=== PATIENT | male | born 1990 ===

== ENCOUNTER 2022-05-26 12:40 | Outpatient (CLI) | payer MEDICAID, SELFPAY | END 2022-05-26 12:41 | disposition home or self-care (01) | PROVIDERS: Visit Provider Family Medicine | DX: R41.82 Altered mental status, unspecified (principal) | CPT/HCPCS: A0425; A0427 ==

== ENCOUNTER 2022-05-26 14:16 | Emergency (ER) | payer MEDICAID, SELFPAY ==
[2022-05-26] VITALS (7 sets, daily range): BP systolic 112–132; BP diastolic 73–99; PULSE 54–89; RESP 12–16; TEMP 36.2; O2SAT 96–99; BMI 21.8
[2022-05-26 15:02] LABS: Lactate* 1.4 mmol/L (0.5-1.9)
[2022-05-26 15:07] LABS: Hematocrit 43.9 % (37.0-53.0); Hemoglobin* 14.5 gm/dL (13.5-17.5); Immature Granulocytes Pct Auto 0.4 %; Lymphocytes Percent Auto 4.1 % (20-44); Mean Corpuscular HGB Conc 33 gm/dL (32-36); Mean Corpuscular Hemoglobin 29 pg (26-34); Mean Corpuscular Volume 89 fL (80-100); Monocytes Percent Auto 6.2 % (0.0-11.0); Neutrophils Percent Auto 89.3 % (42.0-72.0); Platelet Count* 231 K/uL (140-440); RDW Coefficient of Variation % 13.3 % (11.5-15.5); Red Blood Count 4.94 m/uL (4.30-5.90)
[2022-05-26 15:17] LABS: Slide Review Reflex Yes; White Blood Count* 30.33 K/uL (4.50-11.00)
[2022-05-26 15:19] LABS: Barbiturate Screen Urine Negative (Negative); Benzodiazepines Screen Urine Negative (Negative); Cannabinoid Screen Urine Negative (Negative); Cocaine Screen Urine Negative (Negative); Methadone Screen Urine Negative (Negative); Opiate Screen Urine Negative (Negative); Oxycodone Screen Urine Negative (Negative); Phencyclidine Screen Urine Negative (Negative); Tricyclic Antidepressant Urine Negative (Negative)
[2022-05-26 15:23] LABS: Amphetamine Screen Urine POSITIVE (Negative); Methamphetamines Screen Urine POSITIVE (Negative)
--- NOTE | 2022-05-26 15:50 | ED.OVERDOSE ---
HPI - Overdose General Date Seen: 05/26/22 Chief Complaint: Overdose Stated Complaint: OD Time Seen by Provider: 05/26/22 14:21 Source: patient Mode of arrival: EMS Limitations: no limitations History of Present Illness HPI Narrative: Patient is a 32-year-old gentleman who presents here for overdose, Intent: unknown Related Data Home Medications Medication Instructions Recorded Confirmed No Known Home Medications 05/26/22 05/26/22 Allergies Allergy/AdvReac Type Severity Reaction Status Date / Time No Known Drug Allergies Allergy Verified 05/26/22 14:24 PFSH PFSH Social History Smoking Status: Current every day smoker How often do you have a drink containing alcohol: monthly or less AUDIT-C Alcohol total score: 1 Non-prescribed substance use: marijuana (any form) and declined to answer Exam Narrative: Exam Narrative: Patient is seen in room 8 in no apparent distress he is answer my questions appropriately, normal vital signs, when I get his worker out of the room, he admits to me that he likely overdosed on fentanyl, pupils are equal or round and reactive to light there midposition, tracks normally no nystagmus TMs are normal, cranial nerves 3-12 are normal oropharynx is normal neck is supple chest is clear with normal heart sounds S1-S2 are normal, no redness is noted over his chest which is atypical for history of the possible CPR. Abdomen is soft there is no guarding no pedal splenomegaly or organomegaly extremities are all normal moves all extremities independently well he has symmetrical both upper and lower extremities and bilaterally symmetrical with normal power. Skin reveals no rashes, Const: Vital Signs, click to edit/add: Vital Signs - 24 hr 05/26/22 14:19 05/26/22 15:30 05/26/22 15:00 Temperature 97.2 F L Pulse Rate [Pulse Oximeter] 71 82 89 Respiratory Rate 12 16 16 Blood Pressure [Le ft Upper Arm] 129/79 132/99 H 129/77 Pulse Oximetry 98 99 98 Oxygen Delivery Me thod Room Air Room Air Room Air Documenting provider has reviewed patient's vital signs: yes Course Course Hospital Course: Patient remains stable, he had no complaints, I went back in and checked on him multiple times, EKG x2 shows no acute change, and troponin x2 shows no delta. His white count was elevated at 30 up suspect this is from de margination from the event, I will sign him over to my partner Dr. Santos to pending repeat white count. If this is normal, then I think we can let him go otherwise I would recommend watching him overnight he seems agreeable. Vital Signs Vital signs: Initial Vital Signs Temperature 97.2 F L 05/26/22 14:19 Temperature Source Temporal Artery Scan 05/26/22 14:19 Pulse Rate 71 05/26/22 14:19 Pulse Rhythm 05/26/22 14:19 Respiratory Rate 12 05/26/22 14:19 Blood Pressure 129/79 05/26/22 14:19 Blood Pressure Mean 95 05/26/22 14:19 Blood Pressure Position Sitting 05/26/22 14:19 Pulse Oximetry 98 05/26/22 14:19 Oxygen Delivery Method 05/26/22 14:19 Vital Signs Temperature 97.2 F L 05/26/22 14:19 Pulse Rate 71 05/26/22 14:19 Respiratory Rate 12 05/26/22 14:19 Blood Pressure 129/79 05/26/22 14:19 Pulse Oximetry 98 05/26/22 14:19 Oxygen Delivery Method 05/26/22 14:19 Temperature 97.2 F L 05/26/22 14:19 Pulse Rate 82 05/26/22 15:30 Respiratory Rate 16 05/26/22 15:30 Blood Pressure 132/99 H 05/26/22 15:30 Pulse Oximetry 99 05/26/22 15:30 Oxygen Delivery Method 05/26/22 15:30 MDM - Overdose Differential Diagnosis Differential diagnosis: Likely cocaine intoxication, suicide attempt by multiple drug overdose, poisoning by opiate or related narcotic, drug overdose, acetaminophen overdose and accidental drug ingestion Medical Records Attestation: I reviewed the patient's medical records. Lab Data Attestation: I reviewed the patient's lab results. Labs: Lab Results 05/26/22 05/26/22 05/26/22 Range/Units 14:50 14:50 14:50 WBC 30.33 H* (4.50-11.00) K/uL RBC 4.94 (4.30-5.90) m/uL Hgb 14.5 (13.5-17.5) gm/dL Hct 43.9 (37.0-53.0) % MCV 89 (80-100) fL MCH 29 (26-34) pg MCHC 33 (32-36) gm/dL RDW Coeff of Landen 13.3 (11.5-15.5) % Plt Count 231 (140-440) K/uL Neut % (Auto) 89.3 H (42.0-72.0) % Lymph % (Auto) 4.1 L (20-44) % Jenkins % (Auto) 6.2 (0.0-11.0) % Eos % (Auto) 0.0 (0.0-7.0) % Baso % (Auto) 0.0 (0.0-3.0) % Neut # (Auto) 27.10 H (1.7-7.0) K/uL Lymph # (Auto) 1.20 (0.90-2.90) K/uL Jenkins # (Auto) 1.90 H (0.00-0.90) K/UL Eos # (Auto) 0.00 (0.00-0.50) K/uL Baso # (Auto) 0.00 (0.00-0.30) K/uL Abs Immat Gran (auto) 0.10 (0.00-0.30) K/uL Imm/Tot Granulo (auto) 0.4 % Diff Slide Review Acceptable Review (Acceptable) INR 1.10 (0.91-1.10) Sodium 141 (135-149) mmol/L Potassium 3.9 (3.6-5.1) mmol/L Chloride 107 (96-114) mmol/L Carbon Dioxide 26 (20-32) mmol/L BUN 16 (5-24) mg/dL Creatinine 1.1 (0.5-1.5) mg/dL Estimated Creat Clear 106.13 Estimated GFR 92 ml/min Glucose 106 (60-115) mg/dL Lactate (0.5-1.9) mmol/L Calcium 9.1 (8.4-10.6) mg/dL Total Bilirubin 0.6 (0.1-1.5) mg/dL AST 27 (12-35) U/L ALT 16 (4-50) U/L Alkaline Phosphatase 47 (40-150) U/L Total Protein 7.6 (6.0-8.3) g/dL Albumin 4.6 (3.3-5.0) g/dL Salicylates < 1.0 L (1.0-10) mg/dL Urine Opiates Screen (Negative) Ur Oxycodone Screen (Negative) Urine Methadone Screen (Negative) Ur Propoxyphene Screen (Negative) Acetaminophen < 10.0 L (10.0-30.0) ug/mL Ur Barbiturates Screen (Negative) U Tricyclic Antidepress (Negative) Ur Phencyclidine Scrn (Negative) Ur Amphetamines Screen (Negative) U Methamphetamines Scrn (Negative) U Benzodiazepines Scrn (Negative) Urine Cocaine Screen (Negative) U Marijuana (THC) Screen (Negative) Ur Drug Screen Comment Ethyl Alcohol (0.01-0.03) % POC Troponin I (0.01-0.04) ng/ml 05/26/22 05/26/22 05/26/22 Range/Units 14:50 14:50 14:50 WBC (4.50-11.00) K/uL RBC (4.30-5.90) m/uL Hgb (13.5-17.5) gm/dL Hct (37.0-53.0) % MCV (80-100) fL MCH (26-34) pg MCHC (32-36) gm/dL RDW Coeff of Landen (11.5-15.5) % Plt Count (140-440) K/uL Neut % (Auto) (42.0-72.0) % Lymph % (Auto) (20-44) % Jenkins % (Auto) (0.0-11.0) % Eos % (Auto) (0.0-7.0) % Baso % (Auto) (0.0-3.0) % Neut # (Auto) (1.7-7.0) K/uL Lymph # (Auto) (0.90-2.90) K/uL Jenkins # (Auto) (0.00-0.90) K/UL Eos # (Auto) (0.00-0.50) K/uL Baso # (Auto) (0.00-0.30) K/uL Abs Immat Gran (auto) (0.00-0.30) K/uL Imm/Tot Granulo (auto) % Diff Slide Review (Acceptable) INR (0.91-1.10) Sodium (135-149) mmol/L Potassium (3.6-5.1) mmol/L Chloride (96-114) mmol/L Carbon Dioxide (20-32) mmol/L BUN (5-24) mg/dL Creatinine (0.5-1.5) mg/dL Estimated Creat Clear Estimated GFR ml/min Glucose (60-115) mg/dL Lactate 1.4 (0.5-1.9) mmol/L Calcium (8.4-10.6) mg/dL Total Bilirubin (0.1-1.5) mg/dL AST (12-35) U/L ALT (4-50) U/L Alkaline Phosphatase (40-150) U/L Total Protein (6.0-8.3) g/dL Albumin (3.3-5.0) g/dL Salicylates (1.0-10) mg/dL Urine Opiates Screen (Negative) Ur Oxycodone Screen (Negative) Urine Methadone Screen (Negative) Ur Propoxyphene Screen (Negative) Acetaminophen (10.0-30.0) ug/mL Ur Barbiturates Screen (Negative) U Tricyclic Antidepress (Negative) Ur Phencyclidine Scrn (Negative) Ur Amphetamines Screen (Negative) U Methamphetamines Scrn (Negative) U Benzodiazepines Scrn (Negative) Urine Cocaine Screen (Negative) U Marijuana (THC) Screen (Negative) Ur Drug Screen Comment Ethyl Alcohol < 0.01 L (0.01-0.03) % POC Troponin I 0.00 L (0.01-0.04) ng/ml 05/26/22 05/26/22 Range/Units 15:03 16:24 WBC (4.50-11.00) K/uL RBC (4.30-5.90) m/uL Hgb (13.5-17.5) gm/dL Hct (37.0-53.0) % MCV (80-100) fL MCH (26-34) pg MCHC (32-36) gm/dL RDW Coeff of Landen (11.5-15.5) % Plt Count (140-440) K/uL Neut % (Auto) (42.0-72.0) % Lymph % (Auto) (20-44) % Jenkins % (Auto) (0.0-11.0) % Eos % (Auto) (0.0-7.0) % Baso % (Auto) (0.0-3.0) % Neut # (Auto) (1.7-7.0) K/uL Lymph # (Auto) (0.90-2.90) K/uL Jenkins # (Auto) (0.00-0.90) K/UL Eos # (Auto) (0.00-0.50) K/uL Baso # (Auto) (0.00-0.30) K/uL Abs Immat Gran (auto) (0.00-0.30) K/uL Imm/Tot Granulo (auto) % Diff Slide Review (Acceptable) INR (0.91-1.10) Sodium (135-149) mmol/L Potassium (3.6-5.1) mmol/L Chloride (96-114) mmol/L Carbon Dioxide (20-32) mmol/L BUN (5-24) mg/dL Creatinine (0.5-1.5) mg/dL Estimated Creat Clear Estimated GFR ml/min Glucose (60-115) mg/dL Lactate (0.5-1.9) mmol/L Calcium (8.4-10.6) mg/dL Total Bilirubin (0.1-1.5) mg/dL AST (12-35) U/L ALT (4-50) U/L Alkaline Phosphatase (40-150) U/L Total Protein (6.0-8.3) g/dL Albumin (3.3-5.0) g/dL Salicylates (1.0-10) mg/dL Urine Opiates Screen Negative (Negative) Ur Oxycodone Screen Negative (Negative) Urine Methadone Screen Negative (Negative) Ur Propoxyphene Screen Negative (Negative) Acetaminophen (10.0-30.0) ug/mL Ur Barbiturates Screen Negative (Negative) U Tricyclic Antidepress Negative (Negative) Ur Phencyclidine Scrn Negative (Negative) Ur Amphetamines Screen POSITIVE A* (Negative) U Methamphetamines Scrn POSITIVE A* (Negative) U Benzodiazepines Scrn Negative (Negative) Urine Cocaine Screen Negative (Negative) U Marijuana (THC) Screen Negative (Negative) Ur Drug Screen Comment See Note Ethyl Alcohol (0.01-0.03) % POC Troponin I 0.01 (0.01-0.04) ng/ml Imaging Data Chest x-ray: Attestation: I have reviewed the pertinent imaging results. My impression: Chest x-ray appears normal, some rotation. ECG Data Attestation: I personally reviewed and interpreted this ECG as follows: ECG interpretation date: 05/26/22 Interpretation: EKG x2 shows normal sinus rhythm, no acute ST wave changes. Discharge Plan Discharge Clinical Impression: Drug overdose Patient Disposition: Home, Self-Care Condition: Stable Instructions: Adult Overdose (ED) Additional Instructions: Home, rest, consider treatment for your issue, recommend you fill the prescription for Narcan, return if signs and symptoms of worsening, social work consult offered Prescriptions: No Action No Known Home Medications Follow Up/Referrals: Provider,Not a Local [Primary Care Provider] - Stand Alone Forms: [email or web address] Info Instructions
[2022-05-26 16:05] LABS: Prothrombin Time 14.9 Seconds
[2022-05-26 16:16] LABS: Albumin* 4.6 g/dL (3.3-5.0); Chloride* 107 mmol/L (96-114); Sodium* 141 mmol/L (135-149)
[2022-05-26 16:17] LABS: Potassium* 3.9 mmol/L (3.6-5.1)
[2022-05-26 16:19] LABS: Alkaline Phosphatase* 47 U/L (40-150); Aspartate Amino Transferase* 27 U/L (12-35); Bilirubin Total* 0.6 mg/dL (0.1-1.5); Blood Urea Nitrogen* 16 mg/dL (5-24); Carbon Dioxide* 26 mmol/L (20-32); Creatinine* 1.1 mg/dL (0.5-1.5); Est. Creatinine Clearance* 106.13; Estimated Glomerular Filt Rate 92 ml/min; Glucose* 106 mg/dL (60-115); Total Protein* 7.6 g/dL (6.0-8.3)
[2022-05-26 16:20] LABS: Alanine Aminotransferase* 16 U/L (4-50); Calcium* 9.1 mg/dL (8.4-10.6)
[2022-05-26 16:21] LABS: Acetaminophen* < 10.0 ug/mL (10.0-30.0); Ethanol* < 0.01 % (0.01-0.03); Salicylate* < 1.0 mg/dL (1.0-10)
[2022-05-26 16:47] LABS: Troponin, Point-of-Care* 0.01 ng/ml (0.01-0.04)
--- NOTE | 2022-05-26 16:53 | CRLHL7_ITS ---
For Patients: As a result of the Cures Act, medical imaging exams and procedure reports are released immediately into your electronic medical record. You may view this report before your referring provider. If you have questions, please contact your health care provider. INDICATION: Overdose. TECHNIQUE: Chest 1 views. COMPARISON: None. FINDINGS: Cardiovascular and mediastinum: Cardiomediastinal silhouette is within normal limits. Lungs and pleural spaces: Lungs are clear. No sign of pleural effusion. No pneumothorax. Bones and soft tissues: No significant findings. IMPRESSION: No acute cardiopulmonary process identified. Dictated by Kaden Pimentel MD @ 05/26/2022 6:07:18 PM (Electronically Signed)
[2022-05-26 16:55] LABS: Slide Review Acceptable Review (Acceptable)
[2022-05-26 17:45] LABS: White Blood Count* 21.52 K/uL (4.50-11.00)
== END 2022-05-26 18:17 | disposition home or self-care (01) ==
PROVIDERS: Emergency Provider Family Medicine
DX: T50.901A Poisoning by unspecified drugs, medicaments and biological substances, accidental (unintentional), initial encounter (principal); Y92.9 Unspecified place or not applicable
CPT/HCPCS: 36415; 71045; 80053; 80143; 80179; 80306; 82077; 83605; 85025; 85048; 85610; 93005; 99283; 99284; 99285; A9270